=== PATIENT | male | born 1950 | race Caucasian/White ===

== ENCOUNTER → 2016-09-06 | Outpatient (CLI) | payer OTHER ==
[~2016-09-06] MED LIST: ACETAMINOPHEN PO; ALAVERT10 MG PO; ALL DAY ALLERGY10 M2 PO; ALLERCLEAR10 MG PO; AMBIEN PO; ANTIDIARRHEAL2 MG PO; ASPIRIN81 M1 PO; BACLOFEN10 MG; BAYER ASPIRIN325 M1 PO; BISACODYL10 MG/SUPP PR; CALCIUM 600 W/D1 TA1 PO; CALCIUM CARBONA1 TAB; CALCIUM1 TAB.CHEW; CETIRIZINE HCL10 MG; CLARITIN10 M2 PO; CLARITIN10 M3; CLARITIN10 MG PO; CLINDAMYCIN HC300 MG PO; DAKIN'S MODIF1000 ML EXT; FERRO-TIME325 MG PO; FERROCITE PLUS1 CA1 PO; FERROUS SULFATE PO; FERROUS SULFATE1 TAB PO; FLEXERIL10 M1 PO; FLOMAX0.4 M1 PO; HCTZ PO; HYDROCHLOROTHIA25 MG PO; HYDROCODON-ACE1 EAC1 PO; IMODIUM2 MG PO; IRON SUPPLEMENT1 TAB PO; IRON1 TA1 PO; LISINOPRIL PO; LISINOPRIL10 MG; LISINOPRIL5 MG PO; LOMOTIL TABLET1 TAB PO; LOPERAMIDE HCL2 M1 PO; LORATADINE PO; LOVENOX SUBQ; MEDROL PO; METFORMIN HCL500 M1 PO; METFORMIN PO; MOBIC; MOTRIN600 M1 PO; NAPRELAN500 M1 PO; NAPROSYN-EC500 M1 PO; NAPROSYN500 MG PO; NAPROXEN PO; NOVOLIN R100 U/ML INJ; OMEPRAZOLE20 M1 PO; OMEPRAZOLE20 M2 PO; PERCOCET 5-3251 TAB PO; PHENERGAN PO; PHENERGAN25 MG PO; PREDNISONE PO; PRILOSEC PO; PRINIVIL5 MG PO; ROBAXIN 750750 M1 PO; ROBAXIN 750750 MG PO; ROBAXIN PO; SENNA S TABLET1 TAB PO; SERTRALINE HCL100 MG PO; VICODIN PO; VIT B-12 PO; VIT B12 PO; VITAMIN B-121000 MCG PO; VITAMIN B12 PO; VITAMIN D400 UNI1; VITAMIN D50000 UNIT PO; VOLTAREN75 MG PO; ZANAFLEX4 M1 PO; ZINC SULFATE PO; ZINC SULFATE220 M1 PO; ZITHROMAX1 G/PKT PO; ZOLOFT; ZOLOFT PO; ZOLOFT100 MG PO; [UNRECOGNIZED DRUG - OTHER] PO
[2016-09-06 11:07] LABS: HEMATOCRIT 40.2 % (38.0-50.0); HEMOGLOBIN 13.5 gm/dL (13.0-16.0); MEAN CELL VOLUME 92.5 FL (83-96); MEAN CORPUSCULAR HEMOGLOBIN 31.1 PG (28-34); MEAN CORPUSCULAR HGB CONC 33.6 g/dL (30-36); MEAN PLATELET VOLUME 7.5 FL (6.5-11.5); RED BLOOD COUNT 4.34 X10e (3.90-5.60); RED CELL DISTRIBUTION WIDTH 14.7 % (11.0-15.5); WHITE BLOOD COUNT 4.8 X10e3 (4.0-10.5)
[2016-09-06 12:38] LABS: BILIRUBIN,TOTAL 1.2 mg/dL (0.2-2.0); BUN/CREATININE RATIO 23.57; CALCIUM SERUM 8.7 mg/dL (8.4-10.2); CREATININE SERUM 1.4 mg/dL (0.6-1.4); GLOM FILT RATE Estimated 52.7 mL/min (>60); PHOSPHOROUS 3.2 mg/dL (2.5-4.6); POTASSIUM 4.4 mmol/L (3.5-5.1); PROTEIN TOTAL SERUM 6.9 g/dL (6.0-8.3)
[2016-09-07 15:30] LABS: COMPLEMENT C3 128 mg/dL (90-180); COMPLEMENT C4 14 mg/dL (16-47)
[2016-09-10 14:25] LABS: ANA SCREEN Negative (Negative); CALCIUM (PTHINTACT) 9.1 mg/dL (8.6-10.3); HEP C AB (HEPPAN) Nonreactive (Nonreactive); HEP C AB SIGNAL TO CUTOFF 0.13 ratio (<1.00)
== END | disposition home or self-care (01) ==
LOC: CLAB 10:19
PROVIDERS: Internal Medicine Nephrology
DX: I10 Essential (primary) hypertension (principal); N08 Glomerular disorders in diseases classified elsewhere
CPT/HCPCS: 36415; 80053; 82310; 82550; 83970; 84100; 84550; 85027; 86038; 86039; 86160; 86334; 86803

== ENCOUNTER → 2016-12-11 | Outpatient (CLI) | payer MEDICARE, OTHER ==
[2016-12-11 10:53] LABS: ALBUMIN SERUM 3.8 g/dL (3.5-5.0); BILIRUBIN,TOTAL 1.1 mg/dL (0.2-2.0); BUN/CREATININE RATIO 17.05; CALCIUM SERUM 8.4 mg/dL (8.4-10.2); CREATININE SERUM 1.7 mg/dL (0.6-1.4); GLOM FILT RATE Estimated 41.4 mL/min (>60); PHOSPHOROUS 3.6 mg/dL (2.5-4.6); POTASSIUM 4.4 mmol/L (3.5-5.1); PROTEIN TOTAL SERUM 6.5 g/dL (6.0-8.3)
[2016-12-13 10:03] LABS: CALCIUM (PTHINTACT) 8.6 mg/dL (8.6-10.3)
== END | disposition home or self-care (01) ==
LOC: CLAB 09:07
PROVIDERS: Internal Medicine Nephrology
DX: N18.3 Chronic kidney disease, stage 3 (moderate) (principal); N25.81 Secondary hyperparathyroidism of renal origin
CPT/HCPCS: 36415; 80053; 82310; 83970; 84100